=== PATIENT | male | born 1940 | race Caucasian/White ===

== ENCOUNTER → 2018-05-20 | Outpatient (CLI) | payer OTHER | END | disposition home or self-care (01) | LOC: SHCH 10:18 | PROVIDERS: ATTEND Internal Medicine Cardiovascular Disease | DX: I34.0 Nonrheumatic mitral (valve) insufficiency (principal); I48.0 Paroxysmal atrial fibrillation | CPT/HCPCS: 93306 ==

== ENCOUNTER → 2018-06-10 | Outpatient (CLI) | payer OTHER | END | disposition home or self-care (01) | LOC: RAH 13:06 | PROVIDERS: ATTEND Internal Medicine Cardiovascular Disease | DX: Z13.6 Encounter for screening for cardiovascular disorders (principal) | CPT/HCPCS: 75571 ==

== ENCOUNTER → 2018-07-01 | Outpatient (CLI) | payer OTHER ==
[~2018-07-01] VITALS: Ht 172.7 cm; Wt 104.3 kg
[~2018-07-01] MED LIST: REGADENOSON 0.4 MG/5 ML PF SYG IVP SCH
== END | disposition home or self-care (01) ==
LOC: SHCH 07:54
PROVIDERS: ATTEND Internal Medicine Cardiovascular Disease
DX: I21.9 Acute myocardial infarction, unspecified (principal); I25.9 Chronic ischemic heart disease, unspecified; I25.10 Atherosclerotic heart disease of native coronary artery without angina pectoris
CPT/HCPCS: 78452; 93017; 96374; A9500 ×2; J2785

== ENCOUNTER 2021-05-27 14:25 | Emergency (ER) | payer OTHER ==
[~2021-05-27] VITALS: Ht 172.7 cm; Wt 104.3 kg
[2021-05-27 14:29] VITALS: BP 106/73
[2021-05-27 15:21] LABS: CREATININE 1.1 mg/dL (0.5-1.5); POTASSIUM 4.8 mmol/L (3.5-5.1)
[2021-05-27 15:26] LABS: ALBUMIN 2.7 g/dL (3.5-5.0); BILIRUBIN,TOTAL 0.8 mg/dL (0.2-1.0); TOTAL PROTEIN, SERUM 6.6 g/dL (6.0-8.3)
[2021-05-27 15:29] LABS: BASOPHILS % (AUTO) 0.4 % (0.0-5.0); EOSINOPHILS % (AUTO) 1.2 % (0.0-8.0); LYMPHOCYTES % (AUTO) 10.1 % (21.0-51.0); MEAN CORPUSCULAR HEMOGLOBIN 37.1 pg (27.0-33.0); MEAN CORPUSCULAR HGB CONC 33.5 g/dL (32.0-36.0); MEAN CORPUSCULAR VOLUME 110.8 fL (79-99); MONOCYTES % (AUTO) 8.4 % (3.0-13.0); NEUTROPHILS % (AUTO) 77.6 % (40.0-77.0); PLATELET COUNT (AUTO) 243 K/uL (130-400); RED BLOOD CELL COUNT(AUTO) 3.61 MIL/uL (4.50-6.20); RED CELL DISTRIBUTION WIDTH 13.3 % (11.0-15.5); WHITE BLOOD COUNT (AUTO) 17.1 K/uL (4.8-10.8)
[2021-05-27] MEDS ORDERED: MORPHINE 4 MG SYG IV ONE (18:30)
[2021-05-27] MEDS ORDERED: LIDOCAINE HCL MPF 1% 5ML VIAL ONE (18:36)
[2021-05-27] MEDS ORDERED: LIDOCAINE HCL 400MG/20ML VIAL ONE (18:38)
[2021-05-27] MEDS ORDERED: KETOROLAC 15MG/ML VIAL (15MG/ML) IV ONE (18:55)
[2021-05-27] MEDS ORDERED: NAPR-1180 PO (19:15)
[2021-05-27] MEDS ORDERED: CLIN-141 PO (19:15)
[2021-05-27] MEDS ORDERED: CLINDAMYCIN IVPB 300MG/50ML 50 ML IV ONE (19:20)
[2021-05-27] MEDS ORDERED: CLINDAMYCIN IVPB 300MG/50ML 50 ML IV SCH (19:30)
== END 2021-05-27 20:05 | disposition home or self-care (01) ==
LOC: EDH 14:25
DX: T63.331A Toxic effect of venom of brown recluse spider, accidental (unintentional), initial encounter (principal); L02.31 Cutaneous abscess of buttock; I10 Essential (primary) hypertension; E11.9 Type 2 diabetes mellitus without complications; Z88.0 Allergy status to penicillin; Z79.1 Long term (current) use of non-steroidal anti-inflammatories (NSAID); Y92.89 Other specified places as the place of occurrence of the external cause
CPT/HCPCS: 10060; 36415; 80053; 83605; 85025; 96365; 96375; 99284; J1885; J2270; J3490 ×2

== ENCOUNTER 2021-08-25 14:12 | Emergency (ER) | payer OTHER ==
[~2021-08-25] VITALS: Ht 180.3 cm; Wt 104.3 kg
[~2021-08-25 14:12] MED LIST changes: +CLIN-141 PO; +NAPR-1180 PO; -REGADENOSON 0.4 MG/5 ML PF SYG IVP SCH
[2021-08-25 15:00] LABS: BASOPHILS % (AUTO) 0.6 % (0.0-5.0); EOSINOPHILS % (AUTO) 0.9 % (0.0-8.0); HEMATOCRIT 43.7 % (42-54); LYMPHOCYTES % (AUTO) 12.8 % (21.0-51.0); MEAN CORPUSCULAR HEMOGLOBIN 35.2 pg (27.0-33.0); MEAN CORPUSCULAR VOLUME 106.8 fL (79-99); NEUTROPHILS % (AUTO) 76.1 % (40.0-77.0); NUCLEATED RED BLOOD CELLS 0.1 % (0.0-0.19); PLATELET COUNT (AUTO) 224 K/uL (130-400); RED BLOOD CELL COUNT(AUTO) 4.09 MIL/uL (4.50-6.20); WHITE BLOOD COUNT (AUTO) 14.1 K/uL (4.8-10.8)
[2021-08-25] MEDS ORDERED: ACETAMINOPHEN 500 MG TABLET PO ONE (15:00)
[2021-08-25] MEDS ORDERED: 0.9%NACL 1000ML 1,000 ML IV ONE (15:00)
[2021-08-25 15:13] LABS: POTASSIUM 4.7 mmol/L (3.5-5.1)
[2021-08-25 15:18] LABS: ALBUMIN 2.6 g/dL (3.5-5.0); BILIRUBIN,TOTAL 0.8 mg/dL (0.2-1.0); TOTAL PROTEIN, SERUM 6.2 g/dL (6.0-8.3)
[2021-08-25] MEDS ORDERED: IOHEXOL 350 MG/ML 100ML INFUS..BTL IV ONE (16:00)
[2021-08-25 16:52] LABS: APPEARANCE,URINE CLEAR (CLEAR); BILIRUBIN,URINE NEGATIVE (NEGATIVE); COLOR,URINE YELLOW (YELLOW); GLUCOSE, URINE (UA) NEGATIVE (NEGATIVE); KETONES,URINE NEGATIVE (NEGATIVE); LEUKOCYTE ESTERASE ,URINE NEGATIVE (NEGATIVE); NITRATE,URINE NEGATIVE (NEGATIVE); OCCULT BLOOD,URINE NEGATIVE (NEGATIVE); PROTEIN,URINE NEGATIVE (NEGATIVE); UROBILINOGEN,URINE 0.2 mg/dL (0.2-1.0)
[2021-08-25 17:20] VITALS: BP 120/83
[2021-08-25] MEDS ORDERED: POLY17PO4 PO (17:35)
== END 2021-08-25 17:55 | disposition home or self-care (01) ==
LOC: EDH 14:12
DX: S39.012A Strain of muscle, fascia and tendon of lower back, initial encounter (principal); K59.00 Constipation, unspecified; K57.30 Diverticulosis of large intestine without perforation or abscess without bleeding; E11.9 Type 2 diabetes mellitus without complications; E78.00 Pure hypercholesterolemia, unspecified; I10 Essential (primary) hypertension; Z88.0 Allergy status to penicillin; Z79.1 Long term (current) use of non-steroidal anti-inflammatories (NSAID); X58.XXXA Exposure to other specified factors, initial encounter; Y93.89 Activity, other specified; Y92.89 Other specified places as the place of occurrence of the external cause; Y99.8 Other external cause status
CPT/HCPCS: 36415; 74177; 80053; 81003; 85025; 96360; 96361; 99285; J7030; Q9967

== ENCOUNTER 2021-12-15 10:51 | Inpatient (IN) | payer OTHER ==
[~2021-12-15] VITALS: Ht 177.8 cm; Wt 98.9 kg
[~2021-12-15 10:51] MED LIST changes: +POLY17PO4 PO
[2021-12-15 11:37] LABS: BASOPHILS % (AUTO) 0.5 % (0.0-5.0); EOSINOPHILS % (AUTO) 2.9 % (0.0-8.0); HEMATOCRIT 40.1 % (42-54); LYMPHOCYTES % (AUTO) 12.9 % (21.0-51.0); MEAN CORPUSCULAR HEMOGLOBIN 36.9 pg (27.0-33.0); MEAN CORPUSCULAR HGB CONC 33.4 g/dL (32.0-36.0); MEAN CORPUSCULAR VOLUME 110.5 fL (79-99); MONOCYTES % (AUTO) 8.4 % (3.0-13.0); NEUTROPHILS % (AUTO) 73.2 % (40.0-77.0); NUCLEATED RED BLOOD CELLS 0.5 % (0.0-0.19); PLATELET COUNT (AUTO) 233 K/uL (130-400); RED BLOOD CELL COUNT(AUTO) 3.63 MIL/uL (4.50-6.20); RED CELL DISTRIBUTION WIDTH 14.1 % (11.0-15.5); WHITE BLOOD COUNT (AUTO) 13.3 K/uL (4.8-10.8)
[2021-12-15] MEDS ORDERED: FENTANYL CITRATE PF 50 MCG/1 ML 2ML VIAL ONE (11:39)
[2021-12-15] MEDS ORDERED: MIDAZOLAM HCL 1 MG/ML 2ML VIAL ONE (11:40)
[2021-12-15 12:07] LABS: B-TYPE NATRIURETIC PEPTIDE 185 pg/mL (0-100)
[2021-12-15] MEDS ORDERED: AMIODARONE 900MG VIAL 360 MG in DEXTROSE 5%-WATER 200 ML IV SCH (12:30)
[2021-12-15] MEDS ORDERED: AMIODARONE 150MG VIAL 150 MG in DEXTROSE 5%-WATER 100 ML IV SCH (12:30)
[2021-12-15] MEDS ORDERED: AMIODARONE 150MG VIAL ONE (12:39)
[2021-12-15] MEDS ORDERED: DEXTROSE 5%-WATER 100 ML IV ONE (12:45)
[2021-12-15] MEDS ORDERED: AMIODARONE 540 MG/D5W 300ML (0.5MG/MIN) IV SCH ×2 (13:00)
[2021-12-15 13:24] LABS: BILIRUBIN,TOTAL 0.5 mg/dL (0.2-1.0); CREATININE 1.7 mg/dL (0.5-1.5); MAGNESIUM 1.2 mg/dL (1.80-2.40); POTASSIUM 5.1 mmol/L (3.5-5.1); TOTAL PROTEIN, SERUM 5.9 g/dL (6.0-8.3)
[2021-12-15] MEDS ORDERED: MAGNESIUM 2GM PREMIX 50ML 50 ML IV SCH (14:00)
[2021-12-15] MEDS ORDERED: GUAIFENESIN-DM 200/20 MG 10 ML PO PRN (15:00)
[2021-12-15] MEDS ORDERED: THIAMINE HCL 100 MG/ML 2ML VIAL IVP SCH (15:00)
[2021-12-15] MEDS: DOXYCYCLINE 100MG+NS 250ML IV SCH (15:00)
[2021-12-15] MEDS: 0.9%NACL 1000ML 1,000 ML IV SCH (15:30)
[2021-12-15 15:37] LABS: CRP QUANTITATIVE 169.7 mg/L (0.00-9.0); THYROID STIMULATING HORMONE 3.1 uIU/mL (0.36-3.74)
[2021-12-15 15:45] LABS: INR 1.32 (0.85-1.15); PROTHROMBIN TIME 14.2 SEC (9.6-11.6)
[2021-12-15 15:46] LABS: PARTIAL THROMBOPLASTIN TIME 45.5 SEC (26.3-35.5)
[2021-12-15] MEDS: PANTOPRAZOLE 40 MG/VIAL IVP SCH (15:52)
[2021-12-15 18:49] LABS: CREATININE 1.6 mg/dL (0.5-1.5); MAGNESIUM 1.8 mg/dL (1.80-2.40); POTASSIUM 5.1 mmol/L (3.5-5.1)
[2021-12-15] MEDS: IPRATROPIUM 0.5 MG/2.5 ML INH IH SCH ×2 (19:45→23:55)
[2021-12-15] MEDS: BUDESONIDE 0.5 MG/2 ML INH IH SCH (19:45)
[2021-12-15] MEDS: APIXABAN 5 MG TABLET PO SCH (20:21)
[2021-12-15] MEDS ORDERED: NA ZIRCON CYCLOSIL(LOKELMA 10GM) PO ONE (20:30)
[2021-12-15 21:15] VITALS: BP 116/75
[2021-12-16 00:11] VITALS: BP 132/74
[2021-12-16] MEDS: DOXYCYCLINE 100MG+NS 250ML IV SCH ×2 (03:07→15:00)
[2021-12-16 04:22] VITALS: BP 107/79
[2021-12-16 05:48] LABS: BASOPHILS % (AUTO) 0.5 % (0.0-5.0); EOSINOPHILS % (AUTO) 3.3 % (0.0-8.0); HEMATOCRIT 36.8 % (42-54); LYMPHOCYTES % (AUTO) 10.8 % (21.0-51.0); MEAN CORPUSCULAR HEMOGLOBIN 36.9 pg (27.0-33.0); MEAN CORPUSCULAR VOLUME 108.6 fL (79-99); MONOCYTES % (AUTO) 9.3 % (3.0-13.0); NEUTROPHILS % (AUTO) 74.1 % (40.0-77.0); NUCLEATED RED BLOOD CELLS 0.2 % (0.0-0.19); PLATELET COUNT (AUTO) 202 K/uL (130-400); RED BLOOD CELL COUNT(AUTO) 3.39 MIL/uL (4.50-6.20); RED CELL DISTRIBUTION WIDTH 13.6 % (11.0-15.5); WHITE BLOOD COUNT (AUTO) 10.8 K/uL (4.8-10.8)
[2021-12-16] MEDS: BUDESONIDE 0.5 MG/2 ML INH IH SCH (06:24)
[2021-12-16] MEDS: IPRATROPIUM 0.5 MG/2.5 ML INH IH SCH ×2 (06:24→11:05)
[2021-12-16 06:40] LABS: ALBUMIN 2.2 g/dL (3.5-5.0); CREATININE 1.4 mg/dL (0.5-1.5); MAGNESIUM 1.7 mg/dL (1.80-2.40); POTASSIUM 4.2 mmol/L (3.5-5.1)
[2021-12-16 07:08] LABS: BILIRUBIN,TOTAL 0.5 mg/dL (0.2-1.0); CRP QUANTITATIVE 157.9 mg/L (0.00-9.0); TOTAL PROTEIN, SERUM 6.2 g/dL (6.0-8.3)
[2021-12-16] MEDS: APIXABAN 5 MG TABLET PO SCH (08:56)
[2021-12-16] MEDS ORDERED: EZETIMIBE 10 MG TAB PO SCH ×2 (09:00)
[2021-12-16] MEDS ORDERED: ALLOPURINOL 300 MG TABLET PO SCH (09:00)
[2021-12-16] MEDS ORDERED: ATORVASTATIN 20 MG TABLET PO SCH (09:00)
[2021-12-16 09:08] VITALS: BP 127/75
[2021-12-16] MEDS: 0.9%NACL 1000ML 1,000 ML IV SCH (11:00)
[2021-12-16 12:10] VITALS: BP 114/64
[2021-12-16] MEDS ORDERED: METOPROLOL TARTRATE 50 MG TAB PO SCH (15:00)
[2021-12-16] MEDS: PANTOPRAZOLE 40 MG/VIAL IVP SCH (15:38)
== END 2021-12-16 18:48 | disposition left against medical advice (07) | DRG 308 ==
LOC: EDH 10:51 → EDHIP 14:47 → 2AH 21:17
PROVIDERS: ADMIT Hospitalist; ATTEND Hospitalist
DX: I48.91 Unspecified atrial fibrillation (principal); E43 Unspecified severe protein-calorie malnutrition; N17.9 Acute kidney failure, unspecified; Z20.822 Contact with and (suspected) exposure to COVID-19; Z53.29 Procedure and treatment not carried out because of patient's decision for other reasons; E78.00 Pure hypercholesterolemia, unspecified; Z79.899 Other long term (current) drug therapy; E11.40 Type 2 diabetes mellitus with diabetic neuropathy, unspecified; I95.9 Hypotension, unspecified; E86.1 Hypovolemia; Z82.49 Family history of ischemic heart disease and other diseases of the circulatory system; Z83.3 Family history of diabetes mellitus; E83.42 Hypomagnesemia; J20.9 Acute bronchitis, unspecified; I25.10 Atherosclerotic heart disease of native coronary artery without angina pectoris; Z79.01 Long term (current) use of anticoagulants; E86.0 Dehydration; I42.9 Cardiomyopathy, unspecified; Z88.0 Allergy status to penicillin; E11.22 Type 2 diabetes mellitus with diabetic chronic kidney disease; I12.9 Hypertensive chronic kidney disease with stage 1 through stage 4 chronic kidney disease, or unspecified chronic kidney disease; N18.2 Chronic kidney disease, stage 2 (mild); I25.2 Old myocardial infarction; Z68.31 Body mass index [BMI] 31.0-31.9, adult
CPT/HCPCS: 36415; 70450; 71045; 73560; 76770; 80048; 80053; 83036; 83605; 83735; 83880; 84145; 84443; 84484; 85025; 85610; 85651; 85730; 86140; 87071; 87205; 87635; 87804; 93005; 93970; 94640; 94664; C9113; C9803; G0378; J0282; J2250; J3010; J3411; J3475; J3490; J7060